=== PATIENT | female | born 1980 | race Caucasian/White ===

== ENCOUNTER 2018-02-25 11:48 | Emergency (ER) | payer BC ==
[~2018-02-25] VITALS: Ht 160 cm; Wt 84.4 kg
[~2018-02-25 11:48] MED LIST: LABETALOL HCL100 MG PO
--- OUTSIDE RECORDS SUMMARY | 2018-02-25 11:51 | XMS REPORT | Clinical Summary ---
Author Author [facility] Organization [facility] Address Unknown Phone Unavailable Care Team Providers Care Brush Head Maker Name Role Phone Sheila Mixon DO PCP Allergies Active Allergy Reactions Severity Noted Date Comments Ceftriaxone Hives 10/02/2016 Current Medications Prescription Sig. Disp. Refills Start End Date Status Date labetalol (NORMODYNE) 200 Take 200 mg by mouth 3 Active MG tablet (three) times a day. NIFEdipine XL (PROCARDIA Take 1 tablet (30 mg 30 tablet 11 02/06/20 05/10/20 Discontin XL) 30 MG 24 hr tablet total) by mouth daily. 17 17 ued doxylamine-pyridoxine Take 2 tablets by mouth 60 tablet 2 02/06/20 05/10/20 Discontin (DICLEGIS) 10-10 mg nightly. 17 17 ued tablet,delayed release (DR/EC) labetalol (NORMODYNE) 100 Take 1 tablet (100 mg 60 tablet 11 03/19/20 06/06/20 Discontin MG tablet total) by mouth 2 (two) 17 17 ued times a day. butalbital-acetaminophen- Take 1 tablet by mouth 30 tablet 0 06/12/20 07/12/20 caff (FIORICET, ESGIC) every 6 (six) hours as 17 17 50-325-40 mg per tablet needed for headaches for up to 30 days. Active Problems Problem Noted Date 06/06/2017 Amenorrhea 01/09/2017 History of pre-eclampsia 01/09/2017 History of hypertension 01/09/2017 Amenorrhea, unspecified 12/25/2016 Acute bilateral low back pain without sciatica 10/02/2016 Currently Estimated Date of Delivery Comments Yes 08/28/2017 Based on Other Basis Encounters Date Type Specialty Care Team Description 12/13/2017 Telephone Obstetrics and Gynecology Jasmine Marshall MD 06/18/2017 Telephone Obstetrics and Gynecology Jasmine Marshall MD 06/12/2017 Orders Only Obstetrics and Gynecology Delia Tinsley, NO BAKE MOLDER 06/12/2017 Telephone Obstetrics and Gynecology Jasmine Marshall MD 06/06/2017 [facility] Obstetrics and Gynecology Jasmine Marshall Encounter MD 06/06/2017 Telephone Obstetrics and Gynecology Jasmine Marshall MD 06/06/2017 Documentation Obstetrics and Gynecology Tawanda Burgess MD 05/30/2017 Telephone Obstetrics and Gynecology Jasmine Marshall MD 05/26/2017 Documentation Obstetrics and Gynecology Manisha Marquis MD 05/25/2017 Documentation Obstetrics and Gynecology Delia Tinsley, NO BAKE MOLDER FMLA Forms 05/18/2017 Telephone Obstetrics and Gynecology Jasmine Marshall MD 05/16/2017 Orders Only Obstetrics and Gynecology Delia Tinsley, NO BAKE MOLDER 05/16/2017 Orders Only Obstetrics and Gynecology Delia Tinsley, NO BAKE MOLDER Impaired glucose tolerance during (Primary Dx) 05/10/2017 Routine Obstetrics and Gynecology Jasmine Marshall, GA: 24w2d 04/20/2017 Routine Obstetrics and Gynecology Jasmine Marshall GA: 21w3d 03/19/2017 Routine Obstetrics and Gynecology Jasmine Marshall, GA: 16w6d MD after 02/24/2017 Family History Medical History Relation Name Comments Hypertension Father Depression Mother Fibromyalgia Mother Hypertension Mother Hypothyroidism Mother Insomnia Mother Lupus Mother Rheum arthritis Mother Asthma Sister Relation Name Status Comments Father Mother Sister Social History Tobacco Use Types Packs/Day Years Used Date Never Smoker Alcohol Use Drinks/Week oz/Week Comments No Currently Estimated Date of Delivery Comments Yes 08/28/2017 Based on Other Basis Sex Assigned at Date Recorded Not on file Last Filed Vital Signs Vital Sign Reading Time Taken Blood Pressure 134/77 06/06/2017 7:56 PM CDT Pulse 82 06/06/2017 7:56 PM CDT Temperature 36.7 C (98.1 F) 06/06/2017 5:19 PM CDT Respiratory Rate 18 06/06/2017 7:56 PM CDT Oxygen Saturation 96% 06/06/2017 5:20 PM CDT Inhaled Oxygen - - Concentration Weight 96.6 kg (213 lb) 06/06/2017 3:33 PM CDT Height 160 cm (5' 3") 06/06/2017 3:33 PM CDT Body Mass Index 37.73 06/06/2017 3:33 PM CDT Plan of Treatment Health Maintenance Due Date Last Done Comments PAP SMEAR 2002 INFLUENZA VACCINE 06/12/2018 Results * Urinalysis screen and microscopy, with reflex to culture (06/06/2017 4:02 PM) Component Value Ref Range Specimen site Clean catch Color, UA Dark Yellow Appearance, UA Cloudy Specific gravity, UA 1.021 1.001 - 1.035 pH, UA 5.0 5.0 - 8.5 Protein, UA 2+ (A) Negative Glucose, UA Negative Negative Ketones, UA Negative Negative Bilirubin, UA Negative Negative Blood, UA Negative Negative Nitrite, UA Negative Negative Urobilinogen, UA <2.0 <2.0 Leukocyte esterase, UA Negative Negative Epithelial cells, UA 19 /HPF WBC, UA 7 (H) 0 - 4 /HPF RBC, UA <1 0 - 2 /HPF Bacteria, UA Few None seen Yeast, UA None seen Yeast with pseudohyphae, None seen UA Hyaline casts, UA 3 /LPF Specimen Performing Laboratory Urine [facility] DEPARTMENT OF PATHOLOGY AND GENOMIC MEDICINE [address] [place] [id number] * Type and screen, obstetrical patient (06/06/2017 4:02 PM) Component Value Ref Range ABO grouping O Rh type POS Antibody screen (gel) NEG Specimen Performing Laboratory Blood [facility] DEPARTMENT OF PATHOLOGY AND GENOMIC MEDICINE [address] [place] [id number] * Partial thromboplastin time, activated (06/06/2017 4:02 PM) Component Value Ref Range PTT 30.4 23.0 - 36.0 sec Comment: PTT therapeutic range for unfractionated heparin is 61.0-112.0 seconds which corresponds to Anti-Xa 0.3-0.7 U/ml. Specimen Performing Laboratory Blood [facility] DEPARTMENT OF PATHOLOGY AND GENOMIC MEDICINE [address] [place] [id number] * Prothrombin time with INR (06/06/2017 4:02 PM) Component Value Ref Range Prothrombin time 12.5 12.0 - 15.0 sec INR 0.9 Comment: The International Normalized Ratio (INR) is a therapeutic monitoring tool for patients who are stable on oral anticoagulant therapy. An INR of 2.0-3.0 is suggested for deep vein thrombosis/pulmonary embolism. Specimen Performing Laboratory Blood [facility] DEPARTMENT OF PATHOLOGY AND [facility] [address] [place] [address]85 * Fibrinogen (06/06/2017 4:02 PM) Component Value Ref Range Fibrinogen 501 (H) 200 - 450 mg/dL Specimen Performing Laboratory Blood [facility] DEPARTMENT OF PATHOLOGY AND [facility] [address] [place] [address]209 * Gram stain (06/06/2017 4:02 PM) Component Value Ref Range Gram stain result Rare WBC's No organisms seen Comment: Specimen Information Specimen Source: Urine Specimen Site: See UA Specimen Performing Laboratory Urine [facility] DEPARTMENT OF PATHOLOGY AND [address] [id number] * CBC with platelet and differential (06/06/2017 4:02 PM) Component Value Ref Range WBC 8.80 4.50 - 11.00 k/uL RBC 3.86 (L) 4.20 - 5.50 m/uL HGB 12.3 12.0 - 16.0 g/dL HCT 34.7 (L) 37.0 - 47.0 % MCV 89.9 82.0 - 100.0 fL MCH 31.9 27.0 - 34.0 pg MCHC 35.4 31.0 - 37.0 g/dL RDW - SD 41.1 37.0 - 55.0 fL MPV 12.3 8.8 - 13.2 fL Platelet count 106 (L) 150 - 400 k/uL Nucleated RBC 0.20 /100 WBC Neutrophils 76.7 (H) 39.0 - 69.0 % Lymphocytes 12.8 (L) 25.0 - 45.0 % Monocytes 8.8 0.0 - 10.0 % Eosinophils 0.8 0.0 - 5.0 % Basophils 0.2 0.0 - 1.0 % Immature granulocytes 0.7Comment: "Immature granulocytes" 0.0 - 1.0 % (promyelocytes, myelocytes, metamyelocytes) Specimen Performing Laboratory Blood [facility] DEPARTMENT OF PATHOLOGY AND [facility] [address] [place] [address]39 * Urine culture (06/06/2017 4:02 PM) Component Value Ref Range Urine culture isolate Mixed Gram positive sharee 10-5 cfu/ml (A) Comment: Specimen Information Specimen Source: Urine Specimen Site: See UA Urine culture isolate Gram negative rods <10-1 cfu/ml (A) Specimen Performing Laboratory Urine [facility] DEPARTMENT OF PATHOLOGY AND GENOMIC MEDICINE [address] [place] [address] 12943 * Syphilis treponemal IgG (06/06/2017 3:41 PM) Component Value Ref Range Syphilis treponemal IgG Non-reactiveComment: Non-reactive: No serological Non-reactive evidence of Syphilis infection Specimen Performing Laboratory Serum [facility] OF PATHOLOGY AND [facility] [address] [place] [id number] * Estimated GFR (06/06/2017 3:41 PM) Component Value Ref Range GFR Non Af Amer 81 mL/min/1.73 m2 GFR Af Amer >90 mL/min/1.73 m2 Comment: Chronic kidney disease: <60 mL/min/1.73m2 Kidney failure: <15 mL/min/1.73m2 The estimated GFR is calculated from the IDMS-traceable Modification of Diet in Renal Disease Equation. The accuracy of the calculation is poor when the creatinine is normal. Calculated values >90 mL/min/1.73m2 are not reported. This equation has not been validated in children (<18 years), women, the elderly (>70 years), or ethnic groups other than Caucasians and Americans. Specimen Performing Laboratory Plasma specimen [facility] DEPARTMENT OF PATHOLOGY AND GENOMIC MEDICINE [address] [place] [address]234 * HIV 1, 2 antibody (06/06/2017 3:41 PM) Component Value Ref Range HIV 1, 2 antibody Non-reactive Non-reactive Comment: Starting from February 08 2016, 4th generation HIV screening and confirmation assays are in use at [facility], consistent with the CDC-recommended algorithm. The screening test detects antibodies to HIV-1, HIV-2 and the p24 antigen. Positive screening results will be automatically reflexed to a HIV-1/HIV-2 differentiation assay. Indeterminant HIV-1 results will be further automatically reflexed to a nucleic acid test for detection of acute infection. Western blot will no longer be performed as a confirmation test. For a quick reference guide on the testing algorithm, please refer to: http://stacks.cdc.gov/view/cdc/40515. Specimen Performing Laboratory Blood [facility] DEPARTMENT OF PATHOLOGY AND GENOMIC MEDICINE [address] [place] [address] 11208 * Hepatitis B surface antigen (06/06/2017 3:41 PM) Component Value Ref Range Hepatitis B surface Ag Non-reactive Non-reactive Specimen Performing Laboratory Blood [facility] DEPARTMENT OF PATHOLOGY AND [facility] [address] [place] [address] 34922 * Uric acid level (06/06/2017 3:41 PM) Component Value Ref Range Uric acid 5.9 (H) 2.4 - 5.7 mg/dL Specimen Performing Laboratory Plasma specimen [facility] DEPARTMENT OF PATHOLOGY AND [facility] [address] [place] [address] 53837 * LDH (06/06/2017 3:41 PM) Component Value Ref Range LDH 289 (H) 87 - 225 U/L Specimen Performing Laboratory Plasma specimen [facility] DEPARTMENT OF PATHOLOGY AND [facility] [address] [place] [address] 07809 * Comprehensive metabolic panel (06/06/2017 3:41 PM) Component Value Ref Range Sodium 139 135 - 148 mEq/L Potassium 3.9 3.5 - 5.0 mEq/L Chloride 104 98 - 112 mEq/L CO2 22 (L) 24 - 31 mEq/L Anion gap 13 7 - 15 mEq/L Comment: Starting from February , anion gap calculation no longer incorporates potassium. Please note the change. BUN 12 6 - 20 mg/dL Creatinine 0.8 0.5 - 0.9 mg/dL Glucose 99 65 - 99 mg/dL Calcium 9.5 8.3 - 10.2 mg/dL Protein 6.0 (L) 6.3 - 8.3 g/dL Comment: [place] 4.6-7.0 g/dL 1 week 4.4-7.6 g/dL 7 months-1year 5.1-7.3 g/dL 1-2 years 5.6-7.5 g/dL >3 years 6.0-8.0 g/dL 18-150 6.3-8.3 g/dL Albumin 2.6 (L) 3.5 - 5.0 g/dL A/G ratio 0.8 0.7 - 3.8 Alkaline phosphatase 94 35 - 104 U/L AST 48 (H) 10 - 35 U/L ALT 78 (H) 5 - 50 U/L Total bilirubin 0.8 0.0 - 1.2 mg/dL Specimen Performing Laboratory Plasma specimen [facility] DEPARTMENT OF PATHOLOGY AND [facility] [address] [place] [address] 09896 * Gestational Diabetes Screen (05/10/2017 9:25 AM) Component Value Ref Range Gestational diabetes 185 (H) 65 - 139 mg/dL screen Comment: According to ADA, a glucose threshold of >139 mg/dL after 50-gram load identifies approximately 80% of women with gestational diabetes mellitus, while the sensitivity is further increased to approximately 90% by a threshold of >129 mg/dL. Specimen Performing Laboratory Blood [facility] Narrative Performed at: [facility] [id number] Software Engineer Web Applications: Rosendo Servin MD, Phone:[phone] * Maternal serum screen AFP [facility] (03/19/2017 11:53 AM) Component Value Ref Range Results: Report Test Results *Screen Negative* Gest. Age on collection 16.0 weeks date Gest. age based on Ultrasound Comment: 16.0 on 03/19/2017 Recalculations are not recommended when gestational dating by LMP and ultrasound are within 10 days. M[age] 36[age]3 [age] Maternal race Weight 202 lbs Insulin Dep Diabetes No Multiple gestation No Alpha fetoprotein 25.7 ng/mL Mom for AFP 0.95 OSBR Risk 10,000 Interpretation Comment Comment: Interpretation: Screen Negative This result is screen negative for OSB. The AFP MoM calculated is based on the gestational age provided. MS-AFP can identify up to 80% of open neural tube defects. Closed neural tube defects and some open defects may not be detected by this test. This test does not screen for Down Syndrome or Trisomy 18. If screening for Down Syndrome or Trisomy 18 is desired, contact [facility] to discuss available options. The [employer] recommends amniocentesis be offered to women age 35 and older. Comment Comment Comment: Kenya Lee, Ph.D., [facility] Principal Genetics Radial Arm Saw Operator References: Available Upon Request. Multiples Of Median Cutoffs For AFP Elevations Luciano 2.5 Black 2.8 IDD 2.0 Twins 4.5 Abbreviation Definitions IDD - Insulin Dep Diabetes OSBR - Open Spina Bifida Risk For further inquiries contact [email or web address] [facility] at [phone]. Specimen Performing Laboratory Blood [facility] Narrative Performed at: [facility] [address] [facility], [facility], [id number] Software Engineer Web Applications: Macy Tanner MD, Phone:[phone] after 02/24/2017 Insurance Payer Benefit Subscriber ID Type Phone Address Plan / Group BCBS BCBS xxxxxxxxxxxx PPO CHOICE PPO/[employer] PPO
[2018-02-25] MEDS ORDERED: KETOROLAC TROMETHAMINE 30 MG/ML VIAL IV STA (11:55)
[2018-02-25] MEDS ORDERED: ONDANSETRON HCL INJ 2 MG/ML VIAL IV STA (11:55)
[2018-02-25] MEDS ORDERED: SODIUM CHLORIDE 0.9% 1000ML 1,000 ML IV STA (11:55)
[2018-02-25 12:35] LABS: BASOPHILS % 0.1 % (0.0-1.0); EOSINOPHILS % 0.3 % (0.0-6.0); HEMATOCRIT 45.7 % (34.2-44.1); HEMOGLOBIN 15.7 g/dL (12.0-16.0); LYMPHOCYTES # (AUTO) 0.4 (1.0-3.2); LYMPHOCYTES % 4.2 % (18.0-39.1); MEAN CORPUSCULAR HEMOGLOBIN 30.1 pg (28-32); MEAN CORPUSCULAR HGB CONC 34.4 g/dL (31-35); MEAN CORPUSCULAR VOLUME 87.7 fL (81-99); MONOCYTES # (AUTO) 0.3 (0.2-0.8); MONOCYTES % 3.2 % (4.4-11.3); NEUTROPHILS # (AUTO) 8.8 (2.1-6.9); NEUTROPHILS % 91.9 % (38.7-80.0); PLATELET COUNT 253 x10e3/uL (140-360); RED BLOOD COUNT 5.21 x10e6/uL (3.6-5.1); RED CELL DISTRIBUTION WIDTH 12.4 % (11.7-14.4)
[2018-02-25 12:59] LABS: ALANINE AMINOTRANSFERASE 27 IU/L (0-55); ALBUMIN 4.3 g/dL (3.5-5.0); ALBUMIN/GLOBULIN RATIO 1.2 (0.8-2.0); ALKALINE PHOSPHATASE 76 IU/L (40-150); AMYLASE 55 U/L (25-125); ANION GAP 12.4 mmol/L (8-16); BLOOD UREA NITROGEN 12 mg/dL (7-26); BUN/CREATININE RATIO 15 (6-25); CALCIUM 9.7 mg/dL (8.4-10.2); CARBON DIOXIDE 26 mmol/L (22-29); CHLORIDE 100 mmol/L (98-107); CREATININE, SERUM 0.78 mg/dL (0.57-1.11); EST GLOMERULAR FILTRATION RATE > 60 ML/MIN (60-); GLUCOSE 108 mg/dL (74-118); LIPASE 21 U/L (8-78); POTASSIUM 4.4 mmol/L (3.5-5.1); SODIUM 134 mmol/L (136-145)
--- NOTE | 2018-02-25 13:25 | Diagnostic Imaging Report ---
PROCEDURE:US GALLBLADDER COMPARISON:None. INDICATIONS:Abdomen Pain FINDINGS: LIVER: Size:16.1 cm in the right midclavicular line, borderline enlarged Appearance:Increased echogenicity, smooth contour Mass:No focal masses GALLBLADDER: Stones/Sludge:None Appearance:No wall thickening, pericholecystic fluid or hydrops. Sonographic Hernandes's Sign:Negative BILE DUCTS: Intrahepatic Ducts:No dilation Extrahepatic Ducts:Common bile duct measures 0.4 cm, no dilatation. PANCREAS: Visualized portions of the neck and proximal body are normal. RIGHT KIDNEY: Size:11.5 cm in length Echogenicity:Normal Collecting System:No hydronephrosis Stone:None Cyst/Mass:None VESSELS: Aorta:Visualized portions are normal. Inferior Vena Cava:Visualized portions are normal. Main Portal Vein:1.3 cm, upper normal size with hepatopetal flow. FREE FLUID: No ascites or pleural effusions. CONCLUSION: No cholelithiasis or evidence of acute cholecystitis. No biliary ductal dilatation. Hepatic steatosis. Dictated by: Reece Garza M.D. on 02/25/2018 at 13:26 Electronically approved by: Reece Garza M.D. on 02/25/2018 at 13:26
[2018-02-25 14:53] LABS: BILIRUBIN,URINE NEGATIVE (NEGATIVE); CLARITY,URINE SL CLOUDY (CLEAR); COLOR,URINE YELLOW (YELLOW); KETONES,URINE NEGATIVE (NEGATIVE); LEUKOCYTE ESTERASE ,URINE TRACE (NEGATIVE); NITRITE,URINE NEGATIVE (NEGATIVE); PROTEIN,URINE DIPSTICK NEGATIVE (NEGATIVE); URINE UROBILINOGEN 0.2 mg/dL (0.2 - 1)
[2018-02-25 15:10] LABS: BACTERIA,URINE MODERATE /HPF; EPITHELIAL CELLS,URINE MANY /LPF; TRANSITIONAL EPI CELLS,URINE FEW; WBC,URINE (MAN) 0-5 /HPF (0-5)
[2018-02-25] MEDS ORDERED: MEROPENEM 1GRAM 1 GM in SODIUM CHLORIDE 0.9% 100 ML 100 ML IV STA (15:28)
[2018-02-25] MEDS ORDERED: ONDANSETRON HCL INJ 2 MG/ML VIAL IV ONE (15:28)
[2018-02-25] MEDS ORDERED: ONDANSETRON HCL INJ 2 MG/ML VIAL IV SCH (16:00)
[2018-02-25] MEDS ORDERED: MEROPENEM 1 GM VIAL IV ONE (16:00)
== END 2018-02-25 16:22 | disposition home or self-care (01) ==
LOC: ER 11:48
DX: R10.11 Right upper quadrant pain (principal); R11.2 Nausea with vomiting, unspecified; R19.7 Diarrhea, unspecified; N10 Acute pyelonephritis
CPT/HCPCS: 36415; 76705; 80053; 81001; 82150; 83690; 85025; 87086; 87400; 99284; J1885; J2185; J2405; J7030

== ENCOUNTER → 2019-08-06 | Outpatient (CLI) | payer BC ==
[2019-08-06 18:08] LABS: BASOPHILS % 0.4 % (0.0-1.0); EOSINOPHILS # (AUTO) 0.1 (0.0-0.4); EOSINOPHILS % 1.8 % (0.0-6.0); HEMATOCRIT 41.9 % (34.2-44.1); HEMOGLOBIN 14.8 g/dL (12.0-16.0); LYMPHOCYTES # (AUTO) 1.4 (1.0-3.2); LYMPHOCYTES % 18.1 % (18.0-39.1); MEAN CORPUSCULAR HEMOGLOBIN 30.7 pg (28-32); MEAN CORPUSCULAR HGB CONC 35.3 g/dL (31-35); MEAN CORPUSCULAR VOLUME 86.9 fL (81-99); MONOCYTES # (AUTO) 0.5 (0.2-0.8); MONOCYTES % 6.6 % (4.4-11.3); NEUTROPHILS # (AUTO) 5.6 (2.1-6.9); NEUTROPHILS % 72.8 % (38.7-80.0); PLATELET COUNT 301 x10e3/uL (140-360); RED BLOOD COUNT 4.82 x10e6/uL (3.6-5.1); RED CELL DISTRIBUTION WIDTH 11.8 % (11.7-14.4)
[2019-08-06 18:20] LABS: ALANINE AMINOTRANSFERASE 29 IU/L (0-55); ALBUMIN 3.6 g/dL (3.5-5.0); ALKALINE PHOSPHATASE 69 IU/L (40-150); ANION GAP 11.7 mmol/L (8-16); BLOOD UREA NITROGEN 11 mg/dL (7-26); BUN/CREATININE RATIO 14 (6-25); CALCIUM 9.8 mg/dL (8.4-10.2); CARBON DIOXIDE 26 mmol/L (22-29); CHLORIDE 102 mmol/L (98-107); CHOL/HDL RATIO 6.8 (3.0-3.6); CHOLESTEROL 238 MD/DL (0-199); CREATININE, SERUM 0.77 mg/dL (0.57-1.11); EST GLOMERULAR FILTRATION RATE > 60 ML/MIN (60-); GLUCOSE 116 mg/dL (74-118); HDL CHOLESTEROL 35 MG/DL (40-60); LDL CHOLESTEROL 146 MG/DL (60-130); POTASSIUM 3.7 mmol/L (3.5-5.1); SODIUM 136 mmol/L (136-145); TRIGLYCERIDES 287 MG/DL (0-149)
[2019-08-06 18:41] LABS: FREE THYROXINE INDEX 2.2808 (1.4-3.8)
== END ==
LOC: LAB 17:41
PROVIDERS: ATTEND Internal Medicine
DX: R53.83 Other fatigue (principal); E78.2 Mixed hyperlipidemia; E56.9 Vitamin deficiency, unspecified
CPT/HCPCS: 36415; 80053; 80061; 82607; 82652; 84436; 84479; 85025

== ENCOUNTER → 2022-09-14 | Outpatient (CLI) | payer BC | LOC: RAD 12:45 | PROVIDERS: ATTEND Internal Medicine | DX: M25.561 Pain in right knee (principal) ==

== ENCOUNTER → 2022-09-22 | Outpatient (CLI) | payer BC | LOC: LAB 11:47 | PROVIDERS: ATTEND Internal Medicine Cardiovascular Disease | DX: R09.81 Nasal congestion (principal); R09.01 Asphyxia | CPT/HCPCS: 0223U; 36415; 87400 ==